=== PATIENT | male | born 1955 ===

== ENCOUNTER 2017-08-19 09:51 | Inpatient (IN) | payer MEDICAID ==
--- NOTE | 2017-08-18 15:45 | GHP ---
[f rep st] PREOP HISTORY AND PHYSICAL DATE OF ADMISSION: 08/19/2017 ADMISSION DIAGNOSIS: Urinary obstruction secondary to BPH. HISTORY: This is a patient who had been referred, and he had an AUA score of 30, and he is exceeding ly unhappy from his urinary tract symptoms. We had attempted medical treatment unsuccessfully. At t he present time, he requests to undergo a TUR of the prostate. He has had a PSA level of 1.96. On t ransrectal ultrasound of the prostate, his prostate volume was 53.3 g with intravesical lobe, and he had a urodynamic study that revealed he had a bladder volume of up to 670. His peak flow was 11, ave rage flow 4.9, maximum voiding pressure was 68, and he had a residual of 50. His nomogram revealed t hat he had obstruction. At the present time, he prefers to undergo procedure, and he is admitted for a TURP. PAST MEDICAL HISTORY: Noncontributory. SURGICAL HISTORY: Appendectomy, cystoscopy, urodynamics. MEDICATIONS: Flomax. ALLERGIES: None. PHYSICAL EXAMINATION: VITAL SIGNS: Stable. CHEST: Clear. HEART: Regular rate and rhythm. ABDOM EN: Normal. No organomegaly, rebound, or guarding. LOWER EXTREMITIES: Normal. SOCIAL HISTORY: Current drinker, daily. Former smoker. FAMILY HISTORY: Noncontributory. ASSESSMENT: At the present time, he is admitted for transurethral resection of the prostate. Indica tion, complications, and options have been discussed. Written and verbal consent has been obtained, and he is to undergo the above procedure. /[id number]/MODL
--- NOTE | 2017-08-19 07:06 | PDHPUP ---
History & Physical Update H&P update statement: This history and physical update is based on an assessment of the patient which was completed after admission or registration (within 24 hours), but prior to the surgery/procedure. H&P update: H&P reviewed & patient examined, no change in patient's condition since H&P completed
[2017-08-19] MEDS ORDERED: LIDOCAINE 2% JELLY 20 ML (UROJECT) ONE (09:59)
[2017-08-19] MEDS ORDERED: ceFAZolin 2 GM/SWFI 2 GM/20 ML SYR IVP ONE (10:06)
[2017-08-19] MEDS ORDERED: LR 1,000 ML IV ONE (10:08)
[2017-08-19] MEDS ORDERED: MIDAZOLAM 2 MG/2 ML VIAL ONE (10:36)
[2017-08-19] MEDS ORDERED: MIDAZOLAM 2 MG/2 ML VIAL IVP ONE (10:36)
--- NOTE | 2017-08-19 10:37 | PDANEPAE ---
ANE History of Present Illness turp ANE Past Medical History - Cardiovascular History Hx Hypertension: No Hx Arrhythmias: No Hx Chest Pain: No Hx Coronary Artery / Peripheral Vascular Disease: No Hx CHF / Valvular Disease: No Hx Palpitations: No - Pulmonary History Hx COPD: No Hx Asthma/Reactive Airway Disease: No Hx Recent Upper Respiratory Infection: No Hx Oxygen in Use at Home: No Hx Sleep Apnea: No Sleep Apnea Screening Result - Last Documented: Negative - Neurologic History Hx Cerebrovascular Accident: No Hx Seizures: No Hx Dementia: No - Endocrine History Hx Diabetes: No Hypothyroid: No Hyperthyroid: No - Renal History Hx Renal Disorders: No - Liver History Hx Hepatic Disorders: No - Neurological & Psychiatric Hx Hx Neurological and Psychiatric Disorders: No - Cancer History Hx Cancer: No - Congenital Disorder History Hx Congenital Disorders: No - GI History GERD: no Hx Gastrointestinal Disorders: No - Other Health History Other Health History: NEG - Chronic Pain History Chronic Pain: Yes (BACK PAIN) - Surgical History Prior Surgeries: APPENDECTOMY ANE Review of Systems Review of Systems: - Exercise capacity METS (RN): 5 METS ANE Patient History - Allergies Allergies/Adverse Reactions: No Known Allergies Allergy (Unverified 08/02/17 11:42) - Home Medications Home Medications: Flomax 08/02/17 [Last Taken Unknown] Multivitamins 08/02/17 [Last Taken Unknown] - NPO status NPO Status: no food or drink >8 hours NPO Since - Liquids (Date): 08/19/17 NPO Since - Liquids (Time): 06:00 NPO Since - Solids (Date): 08/18/17 NPO Since - Solids (Time): 19:00 - Anes Hx Anes Hx: no prior problems - Smoking Hx Smoking Status: Former smoker - Family Anes Hx Family Hx Anesthesia Complications: NEG ANE Labs/Vital Signs - Vital Signs Blood Pressure: 143/91 Heart Rate: 75 Respiratory Rate: 18 O2 Sat (%): 95 Height: 167.64 cm Weight: 74.389 kg ANE Physical Exam - Airway Mallampati Score: Class 2 Mouth exam: normal dental/mouth exam - Pulmonary Pulmonary: no respiratory distress - Cardiovascular Cardiovascular: regular rate and rhythym - ASA Status ASA Status: I ANE Anesthesia Plan Anesthesia Plan: GA w LMA
[2017-08-19] MEDS ORDERED: KETOROLAC 30 MG/1 ML SDV ONE (10:47)
[2017-08-19] MEDS ORDERED: LIDOCAINE 2% 5 ML SDV ONE (10:47)
[2017-08-19] MEDS ORDERED: ONDANSETRON 4 MG/2 ML VIAL ONE (10:47)
[2017-08-19] MEDS ORDERED: fentaNYL 100 MCG/2 ML INJ ONE (10:47)
[2017-08-19] MEDS ORDERED: PROPOFOL 200 MG/20 ML VIAL ONE (10:47)
[2017-08-19] MEDS ORDERED: DEXAMETHASONE 4 MG/ML VIAL ONE (10:48)
[2017-08-19] MEDS ORDERED: ceFAZolin 2 GM/DEXTROSE 100 ML IV ONE (11:00)
[2017-08-19] MEDS ORDERED: ePHEDrine SULFATE 25 MG/5 ML SYR ONE (11:34)
--- NOTE | 2017-08-19 11:51 | POSTOPPROG ---
Post Op Note Date of Operation: 08/19/17 Surgeon: Xavier Duran Anesthesiologist: Jagdish Anesthesia: LMA Pre-op Diagnosis: bph Procedure: turp Inf/Abcess present in the surg proc area at time of surgery?: No EBL: 50-100 Drains: Other (davis) Specimen(s): sent==dictated
[2017-08-19] MEDS ORDERED: OPIUM/BELLADONNA ALKALO SUPP PR PRN (11:53)
[2017-08-19] MEDS ORDERED: LR 500 ML IV PRN (12:00)
[2017-08-19] MEDS ORDERED: NALOXONE HCL 0.4 MG/ML INJ IVP PRN (12:00)
[2017-08-19] MEDS ORDERED: PHENYLEPHRINE HCL 100 MCG/ML SYR IVP PRN (12:00)
[2017-08-19] MEDS ORDERED: fentaNYL 100 MCG/2 ML INJ IVP PRN (12:00)
[2017-08-19] MEDS ORDERED: ALBUTEROL 3 ML DEYVIAL IH PRN (12:00)
--- NOTE | 2017-08-19 12:00 | POSTANESTH ---
Post Anesthetic Evaluation Cardiovascular Status: Normal, Stable Respiratory Status: Normal, Stable Level of Consciousness/Mental Status: Can Participate in Eval Pain Control: Adequate, Prn Tx Ordered Nausea/Vomiting Control: Adequate, Prn Tx Ordered Complications Possibly Related to Anesthesia: None Noted
--- NOTE | 2017-08-19 12:03 | GOP ---
[f rep st] OPERATIVE REPORT DATE OF OPERATION: 08/19/2017 SURGEON: Xavier Duran MD ANESTHESIA: General. ANESTHESIOLOGIST: Zhao Dubon MD. PREOPERATIVE DIAGNOSIS: Benign prostatic hypertrophy with urinary obstruction. POSTOPERATIVE DIAGNOSIS: Benign prostatic hypertrophy with urinary obstruction. PROCEDURE PERFORMED: Transurethral resection of the prostate. FINDINGS: DESCRIPTION OF PROCEDURE: This gentleman underwent general anesthesia and after appropriate time-out Uro-Jet was placed in the urethra and the resectoscope passed and he had elevated bladder neck and i ntravesical lobe of the prostate. So at the beginning of the procedure, there were no tumor, stones or foreign bodies in the bladder. Then I took down the bladder neck at the TUR from the bladder neck to the apex of the prostate, so I could actually have access to the bladder and the prostatic urethr a comfortably. In the right lateral lobe and right portion of the posterior lobe was resected. Left lateral lobe and left portion of the posterior lobe were resected. Bladder was Ellik'd free of all chips and clots. Visualization of the bladder revealed no residual chips or clots. Bladder was inta ct and normal. Ureteral orifices preserved. Verumontanum was preserved and external sphincter appro ximated at the midline symmetrically. At that point, Uro-jet placed in the urethra and a 22 three-wa y catheter passed in the bladder, 60 cc balloon inflated, traction placed, and irrigated clear. He w ill be admitted for postop care. Pathology is sent for assessment. Preoperatively we discussed him we attempted to treat his symptoms medically, but he has had urge, frequency and difficulty voiding, and the TURP was recommended procedure. He tolerated the procedure well and will be in the recovery room. /[id number]/MODL
--- NOTE | 2017-08-19 14:05 | ASMTCMCOM ---
CM Note CM Note Notes: Chart reviewed. Patient s/p TURP. Needs TBD. No anticipated needs at this time. Case management available should needs arise. Plan: Home Independently. Date Signed: 08/19/2017 02:05 PM Electronically Signed By:Erika Murdock RN
[2017-08-19] MEDS: D5W LR 1,000 ML IV SCH (14:09)
[2017-08-19] MEDS: HYDROCODONE/APAP 5/325 TAB PO PRN ×3 (14:25→21:43)
[2017-08-20] MEDS: HYDROCODONE/APAP 5/325 TAB PO PRN ×3 (06:01→21:01)
[2017-08-20] MEDS ORDERED: MULTIVITAMINS PO SCH (09:00)
[2017-08-20] MEDS: MULTIVITAMINS 1 EACH TAB PO SCH (10:16)
[2017-08-20] MEDS: D5W LR 1,000 ML IV SCH (10:18)
--- NOTE | 2017-08-20 12:36 | SOAPPROG ---
SOAP Progress Note Assessment/Plan: Assessment: post op turp. pt complaining of blurred vision, chest pain. Plan: Requested hospitalist consult. 08/20/17 12:35 Subjective: blurred vision, tight chest, rectal pain Objective: Vital Signs Temp Pulse Resp BP Pulse Ox 36.6 C 73 16 113/72 96 08/20/17 11:27 08/20/17 11:27 08/20/17 11:27 08/20/17 11:27 08/20/17 11:27 08/19/17 08/20/17 08/21/17 05:59 05:59 05:59 Intake Total 2046 Output Total 1450 Balance 596 Physical Exam - Physical Exam General Appearance: alert, no apparent distress Respiratory: normal breath sounds, No respiratory distress Cardiac/Chest: regular rate, rhythm Male Genitalia: other (bloody urine in bag) Skin: normal color, warm/dry ICD10 Worksheet Patient Problems: Problems Problem Status Onset Benign localized hyperplasia of prostate with urinary obstruction Acute
--- NOTE | 2017-08-20 13:22 | ASMTCMCOM ---
CM Note CM Note Notes: Chart reviewed. Patient s/p TURP with new signs and symptoms of blurring vision and chest pain prompting hospitalist . Plan: TBD Date Signed: 08/20/2017 01:22 PM Electronically Signed By:Erika Murdock RN
[2017-08-20] MEDS ORDERED: ASPIRIN 325 MG TAB PO ONE ×2 (14:03→16:15)
--- NOTE | 2017-08-20 14:25 | CPEKG ---
Heart Rate: 68 RR Interval: 882 P-R Interval: 172 QRSD Interval: 94 QT Interval: 384 QTC Interval: 409 P [place]: 59 QRS [place]: -25 T Wave [place]: 43 EKG Severity - OTHERWISE NORMAL ECG - EKG Impression: SINUS RHYTHM EKG Impression: BORDERLINE LEFT AXIS DEVIATION Electronically Signed By: Darshan Monroe 23-Aug-2017 10:18:47
[2017-08-20] MEDS ORDERED: MAG HYDROX/AL HYDROX/SIMETH 30 ML UDCUP PO ONE (15:45)
[2017-08-20] MEDS ORDERED: LIDOCAINE 2% VISCOUS 15 ML UDCUP PO ONE (15:45)
[2017-08-20] MEDS ORDERED: HYOSCYAMINE SULFATE 0.125 MG TAB PO ONE (15:45)
--- NOTE | 2017-08-20 15:57 | PDMN ---
Medical Necessity Medical necessity: Change to IP, as of 08/20/17, per PA; los >2 mn for eval/tx of blurred vision & chest pain s/p TURP POD #1; admit for further monitoring, Hospitalist consult & cardiac protocol workup; per progress note & order 08/20/17
--- NOTE | 2017-08-20 17:05 | GCON ---
[f rep st] CONSULTATION MEDICINE CONSULTATION DATE OF CONSULTATION: 08/20/2017 REASON FOR CONSULTATION: Chest pain and history of intermittent blurred vision. HISTORY: The patient is a 61-year-old male with a history of benign prostatic hypertrophy and daily alcohol use, who was admitted to the hospital by the Urology service for elective TURP due to signifi cant urinary symptoms in the setting of benign prostatic hypertrophy. His surgery was uncomplicated. He reportedly complained of chest tightness in the PACU over 24 hours ago. He states at that time he thinks he had a little nausea. He described the pain as central and pressure-like. He denies ass ociated shortness of breath or diaphoresis. He is a nonsmoker. He has no history of hypertension, h yperlipidemia, or diabetes. He does have a family history of coronary disease, reporting his father had a myocardial infarction in his late 70s. He states over the past 24 hours he has had a rather pe rsistent tightness in his chest. It does not seem to be worsened by activity. He is unable to note anything that improves it. He also reported some blurred vision to the nurse. At the time of my kwabena luation, he denies blurred vision, stating his vision is normal. He has no focal weakness. He denie s paresthesias or headaches. He has had no speech difficulties. He reports that since he started th e Flomax, he has had occasional episodes of dizziness associated with vision changes when he stands u p from a seated position. PAST MEDICAL/SURGICAL HISTORY: 1. Benign prostatic hypertrophy. 2. Status post transurethral radical prostatectomy. 3. History of appendectomy. 4. Daily alcohol use. MEDICATIONS: Please see [facility] for completed outpatient medication list. ALLERGIES: He has no known drug allergies. FAMILY HISTORY: Positive for coronary artery disease with an MO in his father. SOCIAL HISTORY: The patient is . His and daughter are present at the bedside. He denie s tobacco. He drinks moderate daily alcohol. He lives independently. REVIEW OF SYSTEMS: A 10-point review of systems was performed and was negative, except for HPI. OBJECTIVE: VITAL SIGNS: Temperature is 36.6, blood pressure 113/72, heart rate 73, respiratory rate 16. He is 96% on room air. GENERAL: Patient is awake, alert, oriented, in no acute distress. HEENT : Head is atraumatic, normocephalic. Pupils equal, round, and reactive to light. Extraocular motio ns intact. Oropharynx is clear. Mucous membranes are moist. NECK: Supple. There is no JVD. HEAR T: Regular rate and rhythm, without murmur. LUNGS: Clear to auscultation bilaterally. ABDOMEN: S oft, nondistended, nontender, with normoactive bowel sounds. EXTREMITIES: Without cyanosis, clubbin g, or edema. NEUROLOGIC: Cranial nerves 2-12 are grossly intact. He has no facial asymmetry. His speech is fluent. There is no pronator drift. No focal weakness. LABORATORY DATA: A basic metabolic panel shows normal electrolytes, normal creatinine of 1.0. Tropo marin is negative. D-dimer is negative. Chest x-ray is personally reviewed and interpreted. The lungs are clear. There is no evidence of in filtrate, pulmonary edema, or effusion. His heart size appears normal. EKG shows normal sinus rhythm, with no ST-segment or T-wave changes suggestive of acute ischemia. ASSESSMENT AND PLAN: The patient is a 61-year-old male with history of benign prostatic hypertrophy, who was admitted to the hospital for elective transurethral resection of prostate and developed post operative chest tightness. 1. Chest pain: His heart score is 3 based on joox-eg-obblvyjxks suspicious history, age and a famil y history of coronary disease. This gives him a 1.7% chance of a major adverse cardiac event. His E KG is nonischemic. His initial troponin is negative. This is reassuring given the onset of his ches t pain occurred 24 hours ago. Chest x-ray is clear. D-dimer is negative, making a pulmonary embolis m unlikely. Furthermore, he has no hypoxemia and is not tachycardic. Overall, I have a low suspicio n for an acute coronary syndrome. He was given a full-dose aspirin with the initiation of his cardia c workup. At this point, the data is reassuring. He clinically appears stable. Given his low risk heart score, I think outpatient risk stratification is appropriate when he is further recovered from his surgery. It is possible he was having a gastrointestinal source of discomfort. We will try a GI cocktail and add h.s. Pepcid to see if this helps. Will continue to trend his troponin to ensure th kathryn are serially negative, and repeat EKG only for recurrent symptoms. 2. Benign prostatic hypertrophy, status post transurethral resection of prostate. Further managemen t per the urology service. 3. Daily alcohol use. He has no evidence of alcohol withdrawal. We will continue to monitor. 4. Deep vein thrombosis prophylaxis: SCDs and consider addition of Lovenox once he is 24 hours post op per the surgery team. 5. Code status: Patient is full code. 6. Disposition: Continue inpatient hospitalization. Disposition per the surgical service. Thank you very much for this consultation. Medicine service will continue to follow while the amna t is in-house. Please do not hesitate to contact us with any further questions or concerns. /[id number]/MODL
[2017-08-20] MEDS ORDERED: FAMOTIDINE 20 MG TAB PO SCH (21:00)
[2017-08-21] MEDS: D5W LR 1,000 ML IV SCH (04:00)
[2017-08-21] MEDS: MULTIVITAMINS 1 EACH TAB PO SCH (08:52)
[2017-08-21 09:58] VITALS: BP 115/80
[2017-08-21] MEDS: HYDROCODONE/APAP 5/325 TAB PO PRN (12:45)
--- NOTE | 2017-08-21 14:38 | GDS ---
[f rep st] DISCHARGE SUMMARY ADMISSION DIAGNOSES: BPH with urinary obstruction. DISCHARGE DIAGNOSES: BPH with urinary obstruction. ADMITTING PHYSICIAN: Dr. Duran REASON FOR ADMISSION: BPH. PROCEDURES: Include transurethral resection of the prostate. CONSULTATIONS: Hospitalist to evaluate chest pain. HOSPITAL COURSE: The patient is a 61-year-old gentleman with symptomatic BPH. He had a transurethra l resection of the prostate with Dr. Duran on August 19, 2017. He tolerated this well. On postop day # 1, he had some chest pain. For this reason, the hospitalist service was consulted. They felt that t his was gastrointestinal in nature and not cardiac; therefore, on postop day #2, after his catheter h ad been removed and he had urinated well, he was declared discharged to home. He will follow up with Dr. Duran in approximately 2 weeks. Please see discharge summary for medication reconciliation. /[id number]/MODL
--- NOTE | 2017-08-21 19:24 | ASMTLACE ---
TAMERAE Length of stay for Answers: 2 days current admission Acuity / Level of Answers: Yes Care: Did the patient have an inpatient admission? Comorbidities - select Answers: Other Notes: urinary obstruction 2/2 all that apply BPH # of Emergency department Answers: 0 visits in the last 6 months Score: 6 Date Signed: 08/21/2017 07:23 PM Electronically Signed By:Brooke Ching RN
--- NOTE | 2017-08-21 19:27 | ASDISCHSUM ---
Discharge Information Plan Status:Home with No Needs Medically Cleared to Leave:08/21/2017 Discharge Date:08/21/2017 01:49 PM CM D/C Disposition:Home, Routine, Self-Care ADT D/C Disposition:Home, Routine, Self-Care Projected Discharge Date:08/21/2017 01:49 PM Transportation at D/C:Family Discharge Delay Reason: Follow-Up Date:08/21/2017 01:49 PM Discharge Slot:2 - 12:01 pm - 18:00 pm Final Diagnosis:Urinary retention with BPH, s/p TURP, chest pain, blurred vision Placement Information Patient Contact Information Contact Name:CINTHIA Relationship:Daughter Address:[address] Work Phone: City:[place] Alternate Phone: [facility]/Zip Code:[place] [address] Email: Financial Information Financial Class:Medicaid Primary Plan Desc:[employer] Primary Plan Number:[id number] Secondary Plan Desc: Secondary Plan Number: Assessment Information LACE LACE Length of stay for Answers: 2 days current admission Acuity / Level of Answers: Yes Care: Did the patient have an inpatient admission? Comorbidities - select Answers: Other Notes: urinary obstruction 2/2 all that apply BPH # of Emergency department Answers: 0 visits in the last 6 months Score: 6 Date Signed: 08/21/2017 07:23 PM Electronically Signed By:Brooke Ching RN [facility] CM Progress Note CM Note CM Note Notes: Chart reviewed. Patient s/p TURP. Needs TBD. No anticipated needs at this time. Case management available should needs arise. Plan: Home Independently. Date Signed: 08/19/2017 02:05 PM Electronically Signed By:Erika Murdock RN [facility] Progress Note CM Note CM Note Notes: Chart reviewed. Patient s/p TURP with new signs and symptoms of blurring vision and chest pain prompting hospitalist . Plan: TBD Date Signed: 08/20/2017 01:22 PM Electronically Signed By:Erika Murdock RN Case Management Discharge Plan Note Case Management Discharge Discharge Order Complete? Answers: Yes Patient to Obtain Answers: via Family Medications Transportation Arranged Answers: Family/Friends Transport will Pick (Date 08/21/2017 12:00 AM & Time) INES Complete Answers: No Notes: N/A Case Management Transport Answers: No Notes: N/A Form Complete Faxed Final Orders Answers: No Notes: N/A Agency/Facility Transfer Answers: No Notes: N/A Report Printed & Faxed to Receiving Agency Family Notified Answers: Yes Notes: At bedside Discharge Comments Notes: Reviewed chart, spoke with DINAH Stratton regarding discharge plan of care, pt's progress. Per MD notes, pt to discharge home today with family support and no identified needs. Pt lives with his and has a very supportive dghtr. No IM signed, not applicable. Pt to follow up as directed. CM available for any further issues or concerns. Discharge Plan: Home independently with family support Date Signed: 08/21/2017 07:26 PM Electronically Signed By:Brooke Ching RN Intervention Information Intervention Type:*Incorrect Registration Date of Service:08/19/2017 12:04 PM Patient Type:Inpatient Staff Member:DINAH Espinoza Courtney Hours: Discipline: Severity: Comment:
== END 2017-08-21 13:49 | disposition home or self-care (01) | DRG 952 ==
LOC: F1N 09:51 → INTOOBSV 09:51 → OBSVTOIN 11:54 → F1N 13:45
PROVIDERS: ADMIT Specialist; ATTEND Urology
PROC: 0VB08ZZ Excision of Prostate, Via Natural or Artificial Opening Endoscopic (ICD-10-PCS; principal; 2017-08-19 11:45)
DX: R07.89 Other chest pain (principal); N40.1 Benign prostatic hyperplasia with lower urinary tract symptoms; N13.8 Other obstructive and reflux uropathy; Z72.89 Other problems related to lifestyle; Z87.891 Personal history of nicotine dependence; Z82.49 Family history of ischemic heart disease and other diseases of the circulatory system
CPT/HCPCS: J0690; J1100; J1885; J2250; J2370; J2405; J2704; J3010